=== PATIENT | female | born 1990 | race Caucasian/White ===

== ENCOUNTER 2018-06-25 13:57 | Inpatient (IN) | payer OTHER ==
[2018-06-25] MEDS ORDERED: IBUPROFEN 600 MG TAB PO (17:00)
[2018-06-25] MEDS ORDERED: METHYLERGONOVINE 0.2 MG INJ IM (17:00)
[2018-06-25] MEDS ORDERED: MISOPROSTOL 200 MCG TAB PR (17:00)
[2018-06-25] MEDS ORDERED: LIDOCAINE 1% (MPF) 30 ML INJ INJ (17:00)
[2018-06-25] MEDS ORDERED: OXYTOCIN 30 UNITS/LR 500 ML IV ×2 (17:00)
[2018-06-25] MEDS ORDERED: BUTORPHANOL 2 MG INJ IV (17:00)
[2018-06-25] MEDS ORDERED: CARBOPROST 250 MCG INJ IM (17:00)
[2018-06-25 17:23] LABS: ADD MAN DIFF? NO
[2018-06-25 17:27] LABS: BASOPHILS % 0.2 % (0.0-2.0); EOSINOPHILS % 0.4 % (0.0-7.0); HEMATOCRIT 38.2 % (37.0-47.0); HEMOGLOBIN 13.5 g/dl (12.0-16.0); LYMPHOCYTES # 3.3 10^3/ul (0.8-2.9); LYMPHOCYTES % 35.3 % (15.0-51.0); MEAN CORPUSCULAR HEMOGLOBIN 32.5 pg (29.0-33.0); MEAN CORPUSCULAR HGB CONC 35.3 g/dl (32.0-37.0); MEAN CORPUSCULAR VOLUME 91.8 fl (82.0-101.0); MEAN PLATELET VOLUME 10.9 fl (7.4-10.4); MONOCYTE # 0.5 10^3/ul (0.3-0.9); MONOCYTES % 5.1 % (0.0-11.0); NEUTROPHIL # 5.4 10^3/ul (1.6-7.5); NEUTROPHILS % 58.4 % (39.0-77.0); PLATELET COUNT 183 10^3/UL (140-415); RED BLOOD COUNT 4.16 10^6/ul (4.20-5.40); RED CELL DISTRIBUTION WIDTH 12.3 % (11.5-14.5)
[2018-06-25 17:27] LABS: WHITE BLOOD COUNT 9.3 10^3/ul (4.8-10.8)
[2018-06-25 17:30] LABS: INR 0.91; PROTIME 12.3 Sec (11.9-14.9)
[2018-06-25 17:31] LABS: PARTIAL THROMBOPLASTIN TIME 24.9 Sec (25.0-35.0)
[2018-06-25] MEDS: LACTATED RINGER'S 1,000 ML IV* ×2 (17:43→22:28)
[2018-06-25] MEDS: AMPICILLIN 2 GM/NS (PMX) 100 ML IV (17:43)
[2018-06-25] MEDS: AMPICILLIN 1 GM/NS (PMX) 50 ML IV (21:05)
[2018-06-25] MEDS: DINOPROSTONE 10 MG VAG SUPP VAG (21:14)
[2018-06-25] MEDS ORDERED: MINERAL OIL LIGHT 10 ML VIAL TOP (21:30)
[2018-06-25 21:47] LABS: RAPID PLASMA REAGIN NONREACTIVE (NR)
[2018-06-25 22:10] LABS: HEPATITIS B SURFACE ANTIGEN NEGATIVE (NEGATIVE)
[2018-06-25 22:23] LABS: ADD UMIC NO; UR ASCORBIC ACID NEGATIVE (NEGATIVE); UR BILIRUBIN (Dip) NEGATIVE (NEGATIVE); UR BLOOD (Dip) NEGATIVE (NEGATIVE); UR CLARITY CLEAR (CLEAR); UR COLOR STRAW (YELLOW); UR GLUCOSE (Dip) NEGATIVE (NEGATIVE); UR KETONES (Dip) NEGATIVE (NEGATIVE); UR LEUKOCYTE ESTERASE (Dip) NEGATIVE Leu/ul (NEGATIVE); UR NITRITE (Dip) NEGATIVE (NEGATIVE); UR SPECIFIC GRAVITY (Dip) 1.005 (1.003-1.030); UR TOTAL PROTEIN (Dip) NEGATIVE (NEGATIVE); UR UROBILINOGEN (Dip) NEGATIVE (NEGATIVE)
[2018-06-25] MEDS ORDERED: FENTAnyl 2MCG/ML-ROPIV 0.2% 100 ML (22:58)
[2018-06-25] MEDS ORDERED: HYDROmorphONE 0.5 MG/0.5 ML SYG IV ×2 (23:30)
[2018-06-25] MEDS ORDERED: DIPHENHYDRAMINE 50 MG INJ IV (23:30)
[2018-06-25] MEDS ORDERED: KETOROLAC 30 MG INJ IV (23:30)
[2018-06-25] MEDS ORDERED: ZOLPIDEM 5 MG TAB PO (23:30)
[2018-06-25] MEDS ORDERED: ONDANSETRON 4 MG INJ IV (23:30)
[2018-06-25] MEDS ORDERED: FENTAnyl 2MCG/ML-ROPIV 0.2% 100 ML BAG EPI (23:30)
[2018-06-25] MEDS ORDERED: NALOXONE (0.4 MG/ML) INJ IV (23:30)
[2018-06-26] MEDS: AMPICILLIN 1 GM/NS (PMX) 50 ML IV ×2 (01:28→05:33)
[2018-06-26] MEDS: LACTATED RINGER'S 1,000 ML IV* ×3 (03:51→14:37)
[2018-06-26] MEDS ORDERED: ALBUTEROL HFA 8 GM INHALER INH (07:00)
[2018-06-26] MEDS ORDERED: MISOPROSTOL 200 MCG TAB PR (07:00)
[2018-06-26] MEDS ORDERED: BENZONATATE 100 MG CAP PO (07:00)
[2018-06-26] MEDS ORDERED: CARBOPROST 250 MCG INJ IM (07:00)
[2018-06-26] MEDS ORDERED: OXYTOCIN 30 UNITS/LR 500 ML IV (07:00)
[2018-06-26] MEDS ORDERED: HYDROCODONE/APAP (5/325) TAB PO (07:00)
[2018-06-26] MEDS ORDERED: METHYLERGONOVINE 0.2 MG INJ IM (07:00)
[2018-06-26] MEDS: OXYTOCIN 30 UNITS/LR 500 ML IV ×3 (07:15→08:47)
[2018-06-26] MEDS ORDERED: predniSONE 20 MG TAB PO ×2 (09:00)
[2018-06-26] MEDS: LANOLIN 7 GM TUBE TOP (09:45)
[2018-06-26] MEDS: IBUPROFEN 600 MG TAB PO ×3 (11:58→23:46)
[2018-06-27] MEDS: IBUPROFEN 600 MG TAB PO ×4 (05:34→23:39)
[2018-06-27 08:25] LABS: ADD MAN DIFF? NO
[2018-06-27 08:39] LABS: WHITE BLOOD COUNT 9.7 10^3/ul (4.8-10.8)
[2018-06-27 08:39] LABS: BASOPHILS % 0.2 % (0.0-2.0); EOSINOPHILS # 0.1 10^3/ul (0.0-0.5); EOSINOPHILS % 0.9 % (0.0-7.0); HEMATOCRIT 36.5 % (37.0-47.0); HEMOGLOBIN 12.1 g/dl (12.0-16.0); LYMPHOCYTES % 30.5 % (15.0-51.0); MEAN CORPUSCULAR HEMOGLOBIN 31.1 pg (29.0-33.0); MEAN CORPUSCULAR HGB CONC 33.2 g/dl (32.0-37.0); MEAN CORPUSCULAR VOLUME 93.8 fl (82.0-101.0); MONOCYTE # 0.5 10^3/ul (0.3-0.9); MONOCYTES % 5.6 % (0.0-11.0); NEUTROPHILS % 62.4 % (39.0-77.0); PLATELET COUNT 175 10^3/UL (140-415); RED BLOOD COUNT 3.89 10^6/ul (4.20-5.40); RED CELL DISTRIBUTION WIDTH 12.6 % (11.5-14.5)
[2018-06-28] MEDS: IBUPROFEN 600 MG TAB PO ×2 (05:54→12:01)
[2018-06-28] MEDS: DIPHTH/TET/ACEL PERTUSS (ADULT) 0.5 ML VIAL IM* (09:04)
== END 2018-06-28 12:40 | disposition home or self-care (01) | DRG 775 ==
LOC: OBT 13:57 → PP1 06-26 08:11 → L-D 13:57 → OBT 16:17 → L-D 16:14
PROVIDERS: Obstetrics & Gynecology
PROC: 10E0XZZ Delivery of Products of Conception, External Approach (ICD-10-PCS; principal; 2018-06-26)
DX: O41.03X0 Oligohydramnios, third trimester, not applicable or unspecified (principal); O69.81X0 Labor and delivery complicated by cord around neck, without compression, not applicable or unspecified; O99.824 Streptococcus B carrier state complicating childbirth; O99.52 Diseases of the respiratory system complicating childbirth; J45.909 Unspecified asthma, uncomplicated; Z37.0 Single live birth; Z3A.40 40 weeks gestation of pregnancy
CPT/HCPCS: 62319; 76815; 76818; 81003; 85025; 85610; 85730; 86592; 86850; 86900; 86901; 87086; 87340